=== PATIENT | male | born 1970 | race Caucasian/White ===

== ENCOUNTER → 2017-03-28 | Outpatient (CLI) | payer BC ==
[2016-09-12 15:04] VITALS: BP 119/87
== END ==
LOC: RT 13:47
PROVIDERS: ATTEND Psychiatry & Neurology Neurology
DX: G56.03 Carpal tunnel syndrome, bilateral upper limbs (principal)
CPT/HCPCS: 95911

== ENCOUNTER 2017-05-09 15:35 | Emergency (ER) | payer BC ==
[2017-05-09 15:42] VITALS: BP 105/69; BMI 40.3
--- NOTE | 2017-05-09 18:22 | DR.GENAD ---
HPI - PCP Primary Care Physician: Amaury - HPI Comment HPI Comment: WAS TOLD BY DR. WU TO COME TO ED. HE WAS CONSULTED AND CAME TO ED AND SAW PATIENT. RECENT BRAIN MRI DONE. HE WANT PATIENT O DO EEG IN AM OUT PATIENT. HE GAVE PATIENT ORDER FOR EEG. - Complaint/Symptoms Chief Complaint Doctors Comments: HEADACHE AND LEFT UPPER EXTREMITY WITH SOME NUMBNESS. Chief Complaint:: "I have been having an extreme headache along with neurological problems. Dr. Wu knows my history and told me to come to the ER so I could be seen by him." - Nurses notes reviewed Nurses Notes Review: Yes - Source History Provided: Patient - Mode of Arrival Mode of Arrival: Ambulatory - Timing Onset of Chief Complaint: 05/04/17 Came on: Suddenly - Duration Duration: Constant Duration: Days - Severity Severity: Moderate PMH - PMH Past Medical History: Yes Past Medical History: Hypertension Past Surgical History: No - Family History History of Family Medical Conditions: Yes Family Medical History: Cancer - Social History Does patient currently use any type of tobacco product: No Have you used tobacco products in the last 12 months: No Type of Tobacco Use: None Does any household member use tobacco: No Alcohol Use: None Do you use any recreational Drugs:: No Lives With: Family Lives Where: Home - infectious screening In the last 2 months have you had wt loss of >10#?: NO Have you had fever, night sweats or hemotysis?: No Have you traveled outside the country in the last 6 months?: No Isolation: Standard ROS - Review of Systems Constitutional: No Symptoms Reported Eyes: No Symptoms Reported ENTM: No Symptoms Reported Respiratoy: No Symptoms Reported Cardiovascular: No Symptoms Reported Gastrointestinal/Abdominal: No Symptoms Reported Genitourinary: No Symptoms Reported Neurological: Headache, Numbness, Dizziness Musculoskeletal: Muscle Pain, Left, Arm (NUMBNESS), Forearm (NUMBNESS) Integumentary: No Symptoms Reported Hematologic/Lymphatic: No Symptoms Reported Endocrine: No Symptoms Reported PE - Vital Signs Vitals: Temperature 98.1 F Pulse Rate 111 Respiratory Rate 18 Blood Pressure 105/69 O2 Sat by Pulse Oximetry 97 - General Limitations: No Limitations General Appearance: Alert - Head Head Exam: Normal Inspection - Eyes Eye exam: Normal Appearance - ENT ENT Exam: Normal External Ear Exam External Ear Exam: Normal External Inspection TM/Canal Exam: Bilateral Normal Nose Exam: Normal Nose Exam Mouth Exam: Normal Inspection Throat Exam: Normal Inspection - Neck Neck Exam: Normal Inspection - Chest Chest Inspection: Symmetric Chest Wall Rise - Respiratory Respiratory Exam: Normal Lung Sounds Bilat Respiratory Exam: Bilateral Clear to Auscultation - Cardiovascular Cardiovascular Exam: Regular Rate, Normal Rhythm, Normal Heart Sounds - Abdominal Exam Abdominal Exam: Normal Bowel Sounds, Soft. negative: Tenderness - Extremities Extremities Exam: Normal Inspection - Back Back Exam: Normal Inspection - Neurologic Neurological Exam: Alert, Oriented X3, CN II-XII Intact, Normal Gait, Reflexes Normal. negative: Motor Sensory Deficit - Skin Skin Exam: Erythema MDM - Additional Information Additional Information Obtained From: Old Records (ARM A), Family - Differential Diagnosis Differential Diagnosis: HEADACHE, MIGRAINE, LT FOREARM NUMBNESS. Course - Treatment Treatment: SEE ORDERS. - Consultation Consultation Comments: NEURO CONSULT. SEE DR. CHOI NOTE ON PROGRESS REPORT FORM. - Education/Counseling Education/Counseling: Patient, Family, Education Educated On: Diagnosis, Needs for Follow Up - Diagnosis Discharge Problem: Orthostatic dizziness Intractable headache Qualifiers: Headache type: unspecified Headache chronicity pattern: chronic headache Qualified Code(s): R51 - Headache - Discharge Plan Disposition: 01 HOME, SELF-CARE Condition: Stable - Follow ups/Referrals Follow ups/Referrals: WILLIE WU [Primary Care Provider] - 05/10/17 - Instructions Instructions: Dizziness, [id number] Additional Instructions: RETURN TO ED IF WORSE. EEG IN AM ORDERED BY DR. WU. INSTRUCTED BY DR. WU, INCREASE CELEXA TO 20MG DAILY.
== END 2017-05-09 18:37 | disposition home or self-care (01) ==
LOC: ER 16:08
DX: R51 Headache (principal); R42 Dizziness and giddiness
CPT/HCPCS: 99281; 99282

== ENCOUNTER → 2017-05-24 | Outpatient (CLI) | payer BC ==
[2017-05-09 15:42] VITALS: BP 105/69
--- NOTE | 2017-05-24 16:31 | MRI ---
MRI SPINE CERVICAL WITHOUT CONTRAST CLINICAL HISTORY: 46-year-old male with neck pain and bilateral radicular symptoms. COMPARISON: None. Technique: Multiplanar, multisequence MRI images of the cervical spine were obtained without the adm inistration of intravenous contrast. FINDINGS: There is a normal cervical lordosis. Alignment is maintained. The craniocervical junction i s normal. Vertebral body and disc space height are maintained. Vertebral marrow and intervertebral di sc space signal are normal. Cord signal is normal. The visualized posterior fossa structures are no rmal. C2-C3: No central canal or neural foraminal stenosis. C3-C4: Broad-based disc osteophyte without cord impingement or signal change without neural foraminal stenosis. C4-C5: Broad-based disc osteophyte without central canal or neural foraminal stenosis. No cord imping ement or signal change. C5-C6: Broad-based disc osteophyte without cord impingement or signal change. Uncovertebral joint and facet joint hypertrophy produce mild bilateral neural foraminal stenosis. C6-C7: No central canal or neural foraminal stenosis. C7-T1: No central canal or neural foraminal stenosis. Paraspinous soft tissues are unremarkable. IMPRESSION: 1. 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 2. See level by level descriptions above. Reported By:
== END | disposition home or self-care (01) | DRG 552 ==
LOC: RAD 13:17
PROVIDERS: ATTEND Psychiatry & Neurology Neurology
DX: M54.2 Cervicalgia (principal); M25.78 Osteophyte, vertebrae
CPT/HCPCS: 72141

== ENCOUNTER → 2017-06-04 | Outpatient (CLI) | payer BC ==
[2017-06-02 17:22] VITALS: BP 107/71
== END ==
LOC: RT 10:31
PROVIDERS: ATTEND Psychiatry & Neurology Neurology
DX: R56.9 Unspecified convulsions (principal)
CPT/HCPCS: 95819

== ENCOUNTER → 2017-06-07 | Outpatient (CLI) | payer BC ==
[2017-06-02 17:22] VITALS: BP 107/71
== END ==
LOC: RT 15:50
PROVIDERS: ATTEND Psychiatry & Neurology Neurology
DX: G47.33 Obstructive sleep apnea (adult) (pediatric) (principal)

== ENCOUNTER → 2017-06-12 | Outpatient (CLI) | payer BC ==
[2017-06-02 17:22] VITALS: BP 107/71
--- NOTE | 2017-06-12 16:58 | VAS ---
HISTORY: Dizzy spells. Syncope. Comparison: None. EXAM: BILATERAL DOPPLER CAROTID ULTRASOUND EXAMINATION Technique: Grayscale and Doppler images of the carotid arteries were obtained bilaterally in this pat ient to assess for carotid artery stenosis or occlusion. Findings: The exam demonstrates no significant atherosclerosis or plaque formation within the carotid arteries bilaterally. No elevated velocities are seen within the CCAs or ICAs to suggest a high-grade stenosis and there is no evidence for occlusion of the carotid arteries. No significant plaque formation or a therosclerotic disease/calcification is seen, either. The vertebral arteries also demonstrate appropr iate, antegrade, vertebral arterial flow. Peak right ICA velocity: 69 centimeters/second. Peak left ICA velocity: 66 centimeters/second. Right CCA to ICA ratio: 1.3. Left CCA to ICA ratio: 0.8. Impression: No evidence for significant atherosclerosis of the carotid arteries or evidence for high-grade stenos is or occlusion of the carotid arteries based on Doppler carotid imaging. Vertebral arteries are also unremarkable on the exam with antegrade flow. Reported By:
== END ==
LOC: RAD 14:33
PROVIDERS: ATTEND Nurse Practitioner Family
DX: R42 Dizziness and giddiness (principal); R06.02 Shortness of breath; R60.0 Localized edema; R00.2 Palpitations
CPT/HCPCS: 93306; 93880